=== PATIENT | female | born 1960 | race Caucasian/White ===

== ENCOUNTER 2024-06-05 13:21 | Emergency (ER) | payer OTHER, MEDICARE, SELFPAY ==
[2024-06-05] VITALS (13 sets, daily range): BP systolic 133–210; BP diastolic 69–114; PULSE 77–108; RESP 11–20; TEMP 36.9–37; O2SAT 95–99; BMI 26.6
--- NOTE | ~2024-06-05 | CT_ITS ---
EXAMINATION: CT HEAD WITHOUT CONTRAST CLINICAL INFORMATION: Headache. Hypertensive. COMPARISON: None available. TECHNIQUE: Contiguous axial imaging was performed from the skull base to vertex without intravenous administration of contrast. This CT examination was performed using dose optimization techniques as appropriate, variously including the following: *Automated exposure control *Adjustment of mA and/or kV according to patient size (this includes techniques or standardized protocols for targeted exams where dose is matched to indication/reason for exam; i.e. extremities or head) *Use of iterative reconstruction technique DLP: 613 mGy-cm FINDINGS: No acute intracranial hemorrhage. No mass effect or midline shift. No parenchymal lesion. The carlson-white differentiation is maintained. No extra-axial fluid collection. The ventricles and sulci are unremarkable. The basal cisterns are patent. The calvarium is intact. The visualized paranasal sinuses and mastoid air cells are clear. CT/CT head/brain wo IV con IMPRESSION: No acute intracranial hemorrhage or mass effect. Electronically signed by: Jc Sam MD 06/05/2024 05:03 PM [facility]
--- NOTE | 2024-06-05 14:06 | ED.HA ---
HPI - Headache General Chief Complaint: Headache Stated Complaint: headache-high bp Time Seen by Provider: 06/05/24 15:29 Source: patient Limitations: no limitations History of Present Illness ED Provider: Gabrielle Arreguin PA-C HPI Narrative: 64-year-old female presents with a headache x7 days. Patient describes a generalized headache, that has been ongoing for the past week. Her pain responds briefly to [id number] Tylenol, but then returns. Denies visual changes, phonophobia, photophobia, dizziness, nausea or vomiting. Patient has also noted that her blood pressure has been elevated, she does not have a history of hypertension. Denies chest pain or shortness of breath. Related Data Previous Rx's ?Medication ?Instructions ?Recorded amlodipine 5 mg tablet 5 mg PO DAILY #14 tabs 06/05/24 Allergies Allergy/AdvReac Type Severity Reaction Status Date / Time COVID-19 (SARS-CoV-2) Allergy Hives Verified 06/05/24 21:44 vaccine, jonathan Review of Systems Review of Systems: Yes all other systems are reviewed and are negative Constitutional: Constitutional: Denies fatigue and Denies fever(s) Eyes: Eyes: Denies change in vision Cardiovascular: Cardiovascular: Denies chest pain and Denies rapid heart rate Endocrine: Endocrine: Denies fatigue PMFSH Past Medical History Attestation statement: The following information was validated with the patient. Medical History (Updated 06/07/24 @ 00:02 by Kareem Li) Hypothyroid Hypertension Social History Social History Smoked in Last 30 Days: No Use of substances other than those prescribed or required for medical reasons: No Advance Directives: No Advance Directives Information Provided: Yes Do you have a plan to hurt others: No Plan Physical Exam Vital Signs: Vital Signs: Last Vital Signs Temp 98.4 F 06/05/24 19:04 Pulse 77 06/05/24 19:04 Resp 12 06/05/24 19:04 BP 133/69 06/05/24 19:04 Pulse Ox 95 06/05/24 19:04 O2 Del Method Room Air 06/05/24 19:04 BMI result Body Mass Index 26.6 Const: Other: Alert, well in appearance Orientation/consciousness: patient oriented x3 Resp: Other: Nonlabored respiration Cardio: Other: Normal peripheral perfusion Skin: Other: Warm dry no rash Neuro: General: patient oriented x3, gait normal, no focal motor deficits and CN's II-XI intact bilaterally Psych: Other: Calm cooperative Course Course Course Narrative: This is a Rapid Medical Exam performed in triage by Elly Melendez PA-C. Full HPI, ROS and PE to be performed by primary ED provider. 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 Tylenol provides mild relief. denies N/V, CP, SOB, visual changes. Does not take BP meds. PE: HTNsive 210/114, ambulating w/steady gait, nonfocal Plan: viral testing, labs Reevaluation(s) Reevaluation #1: improving after first dose Reevaluation #2: further improved Reevaluation #3: further improver 140s SBP, will send with amlodipine and f/u with PCP for new HTN Medications Administered Discontinued Medications Generic Name Dose Route Start Last Admin Trade Name Freq PRN Reason Stop Dose Admin Acetaminophen 975 mg 06/05/24 15:35 06/05/24 15:53 Acetaminophen 325 Mg Tablet PO 06/05/24 15:36 975 mg ONCE ONE Administration Ketorolac Tromethamine 15 mg 06/05/24 15:35 06/05/24 15:49 Ketorolac Tromethamine 15 Mg/Ml Vial IVPUSH 06/05/24 15:36 15 mg ONCE ONE Administration Labetalol HCl 10 mg 06/05/24 15:35 06/05/24 15:47 Labetalol Hcl 100 Mg/20 Ml Vial IVPUSH 06/05/24 15:36 10 mg ONCE ONE Administration Labetalol HCl 10 mg 06/05/24 16:01 06/05/24 16:12 Labetalol Hcl 100 Mg/20 Ml Vial IVPUSH 06/05/24 16:02 10 mg ONCE ONE Administration Labetalol HCl 20 mg 06/05/24 16:27 06/05/24 16:25 Labetalol Hcl 100 Mg/20 Ml Vial IVPUSH 06/05/24 16:28 20 mg ONCE ONE Administration Lorazepam 1 mg 06/05/24 15:35 06/05/24 15:43 Lorazepam 2 Mg/Ml Vial IVPUSH 06/05/24 15:36 1 mg ONCE ONE Administration Medical Decision Making Medical Decision Making [facility] Narrative: 64-year-old female presents with a headache x7 days. Patient describes a generalized headache, that has been ongoing for the past week. Her pain responds briefly to [id number] Tylenol, but then returns. Denies visual changes, phonophobia, photophobia, dizziness, nausea or vomiting. Patient has also noted that her blood pressure has been elevated, she does not have a history of hypertension. Denies chest pain or shortness of breath. No known chronic issues History: Per patient I have considered the following differential diagnoses: Hypertensive urgency, hypertensive emergency, intracranial hemorrhage, migraine, VAD Plan: Given new onset hypertension, screening labs including a cardiac enzymes were obtained assessing for end-organ damage. A CT scan of the brain was obtained as well. I have low suspicion for intracranial hemorrhage given the patient has had symptoms for 7 days, she is neurologically intact is not altered. We will be giving medication for her headache and labetalol for the pressures. Thought about migraine, however she has no features of a migraine type headache. Thought about VAD, however there are no visual changes, there was no preceding heavy lifting injury, and again she is neurologically intact. Labs: No leukocytosis, not anemic, no electrolyte abnormality, creatinine not elevated, cardiac enzymes negative, viral panel negative EKG: Normal sinus rhythm, rate of 76, no ischemic changes no ectopy, QTC 499 CT brain: CT/CT head/brain wo IV con IMPRESSION: No acute intracranial hemorrhage or mass effect. Electronically signed by: Jc Sam MD 06/05/2024 05:03 PM [facility] Lab Data 06/05/24 14:56 06/05/24 14:56 Labs: Lab Results 06/05/24 06/05/24 Range/Units 14:55 14:56 WBC 10.5 (4.8-10.8) X10*3/uL RBC 5.06 (4.20-5.50) X10*6/uL Hgb 14.7 (12.0-16.0) g/dl Hct 42.9 (37.0-47.0) % MCV 84.8 (80.0-98.0) fL MCH 29.1 (27.0-33.0) pg MCHC 34.3 (31.0-35.0) g/dl RDW 13.1 (11.0-16.0) % Plt Count 329 (160-400) X10*3/uL MPV 9.1 L (9.4-12.3) fL Immature Gran % (Auto) 0.4 (0.0-0.4) % Neut % (Auto) 71.2 (45-73) % Lymph % (Auto) 18.2 L (20-40) % [place] % (Auto) 8.4 (2-11) % Eos % (Auto) 1.4 (0-4) % Baso % (Auto) 0.4 (0-2) % Lymph # (Auto) 1.9 (1.2-4.9) X10*3/uL [place] # (Auto) 0.9 (0.1-1.2) X10*3/uL Eos # (Auto) 0.2 (0.0-0.4) X10*3/uL Baso # (Auto) 0.0 (0.0-0.2) X10*3/uL Abs Immat Gran (auto) 0.04 H (0.00-0.03) X10*3/uL Absolute Neuts (auto) 7.5 (2.0-8.3) x10*3/uL Absolute Nucleated RBC 0.000 (0.0-0.012) X10*3/uL Nucleated RBC % (auto) 0.0 (0.0-0.2) /100WBC Sodium 138 (135-145) mmol/L Potassium 4.1 (3.3-5.1) mmol/L Chloride 95 L (96-108) mmol/L Carbon Dioxide 35 H (22-29) mmol/L Anion Gap 12 (12-20) BUN 18 H (9-16) mg/dL Creatinine 0.83 (0.5-1.4) mg/dL Estim Creat Clear Calc 69.2 Estimated GFR > 60 Random Glucose 103 (60-115) mg/dL Calcium 10.1 (8.4-10.2) mg/dL Magnesium 2.3 (1.6-2.6) mg/dL Total Bilirubin 0.4 (0.0-1.0) mg/dL Direct Bilirubin 0.2 (0.0-0.5) mg/dL AST 56 H (5-31) U/L ALT 35 H (0-31) U/L Alkaline Phosphatase 64 (39-117) U/L Troponin I High Sens < 2.7 (<3.5-17.0) ng/L Total Protein 8.3 H (6.5-8.0) g/dL Albumin 4.7 (3.5-5.0) g/dL Influenza Type A (PCR) NEGATIVE (Negative) Influenza Type B (PCR) NEGATIVE (Negative) RSV RNA Qual (PCR) NEGATIVE (Negative) SARS-CoV-2 RNA (RT-PCR) NEGATIVE (Negative) Discharge Plan Discharge Clinical Impression: Hypertension, Headache Patient Disposition: Home, Self-Care Instructions: Heart Healthy Diet (ED), Low-Sodium Diet (ED), Hypertension in the Older Adult (ED) Additional Instructions: You were treated for elevated blood pressure and a headache. The CT scan of your brain was normal. Your blood pressure responded to IV medication called labetalol. We are starting you on a hypertensive agent called the amlodipine. You need to call your primary care provider tomorrow to schedule a follow up appointment, you need further management for your new onset hypertension. I have provided you with information to read, including appropriate lifestyle and dietary modifications. Prescriptions: New amlodipine 5 mg tablet 5 mg PO DAILY Qty: 14 0RF Interventions: ED Discharge Assessment Last Done: 06/05/24 19:04 Discharge Date/Time: 06/05/24 19:06 Print Language: Kinyarwanda
--- NOTE | 2024-06-05 14:10 | ECG_ITS ---
Test Reason : NUEROLOGICAL Blood Pressure : / mmHG Vent. Rate : 076 BPM Atrial Rate : 076 BPM P-R Int : 154 ms QRS Dur : 082 ms QT Int : 410 ms P-R-T Axes : -06 011 027 degrees QTc Int : 461 ms Normal sinus rhythm Normal ECG No previous ECGs available Referred By: Elly Melendez Electronically Signed By:Leif Montano
--- NOTE | 2024-06-05 14:28 | PC.NURSE ---
strong steady gait to 6H. no neuro deficits noted.
[2024-06-05 15:00] LABS: MANUAL DIFF FLAG NO
[2024-06-05 15:02] LABS: Basophils Percent Auto 0.4 % (0-2); Eosinophils Absolute Auto 0.2 X10*3/uL (0.0-0.4); Eosinophils Percent Auto 1.4 % (0-4); Hematocrit 42.9 % (37.0-47.0); Hemoglobin 14.7 g/dl (12.0-16.0); Imm Gran Abs Auto 0.04 X10*3/uL (0.00-0.03); Imm Gran Pct Auto 0.4 % (0.0-0.4); Lymphocytes Absolute Auto 1.9 X10*3/uL (1.2-4.9); Lymphocytes Percent Auto 18.2 % (20-40); Mean Corpuscular HGB Conc 34.3 g/dl (31.0-35.0); Mean Corpuscular Hemoglobin 29.1 pg (27.0-33.0); Mean Corpuscular Volume 84.8 fL (80.0-98.0); Mean Platelet Volume 9.1 fL (9.4-12.3); Monocytes Absolute Auto 0.9 X10*3/uL (0.1-1.2); Monocytes Percent Auto 8.4 % (2-11); Neutrophils Absolute Auto 7.5 x10*3/uL (2.0-8.3); Neutrophils Percent Auto 71.2 % (45-73); Platelet Count 329 X10*3/uL (160-400); Red Blood Count 5.06 X10*6/uL (4.20-5.50); Red Cell Distribution Width 13.1 % (11.0-16.0); White Blood Count 10.5 X10*3/uL (4.8-10.8)
--- NOTE | 2024-06-05 15:02 | PC.NURSE ---
Pt presents to ED from home, reports headache and high blood pressures X1 week. Headache 8/10, throbbing. Denies any SOB, CP, fevers, N/V/D, recent trauma or illnesses. Neuros intact. Alert and oriented, breathing even and unlabored, skin warm and dry. 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 BP significantly hypertensive.
[2024-06-05 15:28] LABS: Troponin-I High Sensitivity < 2.7 ng/L (<3.5-17.0)
[2024-06-05 15:38] LABS: Influenza A PCR NEGATIVE (Negative); Influenza B PCR NEGATIVE (Negative); Resp Syncy Virus RNA Qual PCR NEGATIVE (Negative); SARS COV2 PCR INHOUSE NEGATIVE (Negative)
[2024-06-05] MEDS: LORazepam 2 MG/ML VIAL 1 MG IVPUSH (15:43)
[2024-06-05 15:44] LABS: Alanine Aminotransferase 35 U/L (0-31); Albumin Level 4.7 g/dL (3.5-5.0); Alkaline Phosphatase 64 U/L (39-117); Anion Gap 12 (12-20); Aspartate Amino Transferase 56 U/L (5-31); Bilirubin Direct 0.2 mg/dL (0.0-0.5); Bilirubin Total 0.4 mg/dL (0.0-1.0); Blood Urea Nitrogen 18 mg/dL (9-16); Calcium 10.1 mg/dL (8.4-10.2); Carbon Dioxide 35 mmol/L (22-29); Chloride 95 mmol/L (96-108); Creatinine Clr Calc Pharmacy 69.2; Estimated Glomerular Filt Rate > 60; Glucose Random 103 mg/dL (60-115); Magnesium 2.3 mg/dL (1.6-2.6); Potassium 4.1 mmol/L (3.3-5.1); Sodium 138 mmol/L (135-145); Total Protein 8.3 g/dL (6.5-8.0)
[2024-06-05] MEDS: Labetalol HCL 100 MG/20 ML VIAL 10 MG IVPUSH ×2 (15:47→16:12)
[2024-06-05] MEDS: Ketorolac Tromethamine 15 MG/ML VIAL IVPUSH (15:49)
[2024-06-05] MEDS: Acetaminophen 325 MG TABLET 975 MG PO (15:53)
--- NOTE | 2024-06-05 16:04 | PC.NURSE ---
verbal order from PA to give 10mg labetalol BP 175/90. Patient reports improvement in headache
[2024-06-05] MEDS: Labetalol HCL 100 MG/20 ML VIAL 20 MG IVPUSH (16:25)
--- NOTE | 2024-06-05 16:30 | PC.NURSE ---
20mg IV push labetalol given at 4:24pm, per provider verbal order
== END 2024-06-05 19:06 | disposition home or self-care (01) ==
PROVIDERS: Physician Assistant; Emergency Provider Student in an Organized Health Care Education/Training Program; PCP Nurse Practitioner Adult Health
DX: R51.9 Headache, unspecified (principal); I10 Essential (primary) hypertension; Z79.899 Other long term (current) drug therapy; Z03.818 Encounter for observation for suspected exposure to other biological agents ruled out
CPT/HCPCS: 0241U; 36415; 70450; 80048; 80076; 83735; 84484; 85025; 93005; 96374; 96375; 96376; 99284; 99285; J1885; J1920; J2060

== ENCOUNTER → 2024-06-05 14:10 | Outpatient (BNV) | payer MEDICARE, OTHER, SELFPAY | PROVIDERS: Emergency Provider Student in an Organized Health Care Education/Training Program; PCP Nurse Practitioner Adult Health; Visit Provider Internal Medicine Cardiovascular Disease | DX: R42 Dizziness and giddiness (principal); R94.31 Abnormal electrocardiogram [ECG] [EKG] | CPT/HCPCS: 93010 ==

== ENCOUNTER 2024-06-05 21:34 | Emergency (ER) | payer OTHER, MEDICARE, SELFPAY ==
--- NOTE | 2024-06-05 | ECG_ITS ---
Test Reason : DIZZINES Blood Pressure : / mmHG Vent. Rate : 066 BPM Atrial Rate : 066 BPM P-R Int : 162 ms QRS Dur : 084 ms QT Int : 506 ms P-R-T Axes : 051 036 025 degrees QTc Int : 530 ms Normal sinus rhythm Prolonged QT Abnormal ECG When compared with ECG of 05-JUN-2024 16:48, No significant change was found Referred By: Generic ED Physician Electronically Signed By:Leif Montano
--- NOTE | ~2024-06-05 | CT_ITS ---
EXAMINATION: Unenhanced CT the head; IV contrast enhanced CT angiography of the head and neck; delayed IV contrast-enhanced CT the head CLINICAL INFORMATION: Severe headache. Syncope. COMPARISON: CT head 06/05/2024 TECHNIQUE: Routine unenhanced CT the head with multiple coronal and sagittal reformatted images; IV contrast enhanced CT angiography of the head and neck with multiple 3-D reformatted angiographic thick section MIPS images processed on the technologist workstation under concurrent supervision; delayed IV contrast-enhanced CT the head. Vascular stenoses are made with reference to the NASCET criteria less otherwise specified. This CT examination was performed using dose optimization techniques as appropriate, variously including the following: *Automated exposure control *Adjustment of mA and/or kV according to patient size (this includes techniques or standardized protocols for targeted exams where dose is matched to indication/reason for exam; i.e. extremities or head) *Use of iterative reconstruction technique Intravenous Contrast: Omnipaque 350 70 mL DLP: 2079 mGy-cm FINDINGS: Unenhanced and IV contrast and CT of the head: No intracranial hemorrhage, tumors or acute infarcts identified. The ventricles and sulci are normal in size and configuration. No focal parenchymal lesions of the brain or abnormal extra-axial fluid collections identified. The right ocular lens replacement is noted. No extracranial soft tissue inflammatory changes. No significant opacification of the visualized paranasal sinuses, mastoid air cells and middle ear cavities. No abnormal enhancement of the brain parenchyma. CT angiography neck: Scattered nonocclusive calcific plaques within the transverse aorta. The left carotid bulb demonstrates eccentric nonocclusive mixed calcific and noncalcific plaques. The right carotid bulb demonstrates nonocclusive eccentric nonulcerative noncalcific atherosclerotic plaque. The left vertebral artery is minimally dominant. No cervical segment vertebral artery stenoses or occlusions identified. CT angiography head: Minimal nonocclusive segmental calcific plaques within the cavernous portions of the internal carotid arteries. An anterior communicating artery is noted. No intrarenal stenoses or occlusions visualized. Visualized lung apices are clear. No cervical lymphadenopathy identified. Normal appearance of the parotid and submandibular glands. Multifocal dental amalgam. No suspicious skeletal lesions identified. Intervertebral disc space narrowing and endplate osteophytosis C4-C5, C5-C6 and C6-C7. CT/CT angio head neck IMPRESSION: Unenhanced and IV contrast enhanced CT of the head: *No acute intracranial abnormalities. *Minimal calcific atherosclerosis of the cavernous portions of internal carotid artery; otherwise, normal unenhanced CT of the head. CT angiography head: *Minimal nonocclusive calcific atherosclerosis of the cavernous portions of the internal carotid arteries. *No intracranial large vessel occlusions. CT angiography neck: *Nonocclusive bilateral carotid bulb not ulcerative atherosclerotic plaques. *Multiple level chronic spondylosis of the cervical spine. Electronically signed by: Brendan Bernard MD 06/06/2024 03:06 AM [facility]
[2024-06-05 21:38] VITALS: BP 100/70; PULSE 66; O2SAT 99
[2024-06-05 21:43] VITALS: BP 129/58; PULSE 67; RESP 16; TEMP 36.7; O2SAT 97; BMI 28.1
[2024-06-05 21:48] VITALS: BP 129/58; PULSE 64; PULSE 67; RESP 16; TEMP 36.7; O2SAT 97
[2024-06-05 21:50] VITALS: O2SAT 97
[2024-06-05] MEDS: Magnesium Sulfate/H2O 2 GM/50 ML PIGGYBACK IV (22:09)
--- NOTE | 2024-06-05 23:28 | MHC.EDTECH ---
late entry: this tech assumed care of pt at 2300, when rounding the on pt, she was witnessed resting quietly in stretcher, inquired if she was in need of anything in which she stated that she did not. Call light within reach and reassured pt to use call light if needs arise.
--- NOTE | 2024-06-05 23:47 | MHC.EDTECH ---
late entry: this tech assumed care of pt at 2300, when runding the pt was witnessed resting quietly in stretcher, at bedside. Inquired if the pt or visitor was in need of anything in which they stated that they did not. Encouraged pt to use call light if needs arise.
[2024-06-05] MEDS: Lactated Ringers 1,000 ML 999 ML IV (23:51)
--- NOTE | 2024-06-05 23:52 | ED_ITS ---
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 She went to get up from the table after feeling weak and had near syncopal event - caught her she did not fully lose consciousness. No injuries. She feels fine now but EMS initial pressures 80s. She came in for first visit of severe frontal headache - no trauma occurred at rest no precipiting events took 3 hours for max intensity has never had anything like this before - no fevers. Headache is much better now. She did not her BP was high all week. complaint: almost passed out Onset (ago): minute(s) ([employer]) Prodromal symptoms: lightheaded Witnessed: Yes - by Bystander Context: standing up Injuries sustained associated with event: none Current symptoms: back to baseline History: other (has never had anti-HTNive given 40mg labetalol in the ED) Treatments prior to arrival: IV fluids Related Data Previous Rx's ?Medication ?Instructions ?Recorded amlodipine 5 mg tablet 5 mg PO DAILY #14 tabs 06/05/24 Allergies Allergy/AdvReac Type Severity Reaction Status Date / Time COVID-19 (SARS-CoV-2) Allergy Hives Verified 06/05/24 21:44 vaccine, jonathan Review of Systems 2 Review of Systems: Constitutional : No Fever, No Chills, No Fatigue ENT/Mouth : No sore throat, No Rhinorrhea Eyes: No Eye Pain, No Swelling, No Redness Cardiovascular : No Chest Pain, No SOB, No Dyspnea on Exertion Respiratory : No Cough, No Sputum Gastrointestinal : No Nausea, No Vomiting, No Diarrhea, No abdominal Pain Genitourinary : No Dysuria, No Urinary Frequency, No Hematuria, Musculoskeletal : No joint pain, No Myalgias, No Joint Swelling Skin : No Skin Lesions, No rash Neuro : No Weakness, No Numbness, No Dizziness, positive Headache, pos syncope Psych : No Anxiety/Panic, No Depression Heme/Lymph: No Bruising, No Bleeding,No Lymphadenopathy Endocrine : No Polyuria, No Polydipsia All other systems reviewed and are negative [facility] Past Medical History Attestation statement: The following information was validated with the patient. Source: old records reviewed Medical History (Updated 06/06/24 @ 00:57 by Clotilde Medina DO) Hypothyroid Hypertension Social History Social History Smoked in Last 30 Days: No Use of substances other than those prescribed or required for medical reasons: No Advance Directives: No Advance Directives Information Provided: Yes Do you have a plan to hurt others: No Plan Physical Exam 2 Vital Signs: Vital Signs: Last Vital Signs Temp 97.7 F 06/06/24 00:17 Pulse 73 06/06/24 00:13 Resp 14 06/06/24 00:17 BP 135/64 06/06/24 00:13 Pulse Ox 98 06/06/24 00:17 O2 Del Method Room Air 06/06/24 00:17 BMI result Body Mass Index 28.1 Appearance: Alert. Oriented X3. No acute distress. Eyes: Pupils equal, round and reactive to light. ENT: Pharynx normal. Neck: Normal inspection. Neck supple. CVS: Normal heart rate and rhythm. Pulses normal. Respiratory: No respiratory distress. Breath sounds normal. Abdomen: Soft and nontender. Skin: Skin warm and dry. Normal skin color. Normal skin turgor. Extremities: No lower extremity edema. No calf ttp Neuro: Oriented X 3. No motor deficit. No sensory deficit. Course Course Course Narrative: signed out to Dr. Holly Medications Administered Generic Name Dose Route Start Last Admin Trade Name Freq PRN Reason Stop Dose Admin Potassium Chloride 10 meq in 100 mls @ 100 mls/hr 06/06/24 01:00 06/06/24 01:52 Potassium Chloride/H20 IV 06/06/24 04:59 100 mls/hr Q1H [place] Administration Discontinued Medications Generic Name Dose Route Start Last Admin Trade Name Freq PRN Reason Stop Dose Admin Magnesium Sulfate 2 gm in 50 mls @ 25 mls/hr 06/05/24 21:48 06/05/24 23:50 Magnesium Sulfate/H2o IV 06/05/24 23:47 Infused ONCE ONE Infusion Lactated Ringer's 1,000 mls @ 999 mls/hr 06/05/24 23:40 06/05/24 23:51 Lr IV 06/06/24 00:40 999 mls/hr .Q1H1M ONE Administration Iohexol 70 ml 06/06/24 01:19 06/06/24 01:20 Iohexol 350 Mg/Ml 100 Ml Infus..Btl IV 06/06/24 01:20 70 ml ONCE ONE Administration Potassium Chloride 40 meq 06/06/24 00:50 06/06/24 01:52 Potassium Chloride Er 20 Meq Tab.Er.Prt PO 06/06/24 00:51 40 meq ONCE ONE Administration Medical Decision Making Medical Decision Making MDM Narrative: 64 yo female with PMH of headaches, HTN, hypothyroidism 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 suspect medication induced orthostatics - at this time basic labs, CTA of head and neck given history for aneurysm, IVF, qtc 530 recheck VS, ortho negative Differential Diagnosis Differential Diagnoses: The differential diagnosis associated with the presentation includes lyte abnormality, reaction to new BP medications, orthostatic Admission/Observation Consideration of admission/observation: Escalation of care including admission/observation considered Lab Data [facility] Lab Attestation statement: I reviewed the patient's lab results. 06/06/24 00:04 06/06/24 00:04 Labs: Lab Results 06/06/24 Range/Units 00:04 WBC 11.8 H (4.8-10.8) X10*3/uL RBC 4.18 L (4.20-5.50) X10*6/uL Hgb 12.2 (12.0-16.0) g/dl Hct 35.9 L (37.0-47.0) % MCV 85.9 (80.0-98.0) fL MCH 29.2 (27.0-33.0) pg MCHC 34.0 (31.0-35.0) g/dl RDW 13.2 (11.0-16.0) % Plt Count 277 (160-400) X10*3/uL MPV 8.5 L (9.4-12.3) fL Immature Gran % (Auto) 0.3 (0.0-0.4) % Neut % (Auto) 67.0 (45-73) % Lymph % (Auto) 20.1 (20-40) % [place] % (Auto) 9.9 (2-11) % Eos % (Auto) 2.3 (0-4) % Baso % (Auto) 0.4 (0-2) % Lymph # (Auto) 2.4 (1.2-4.9) X10*3/uL [place] # (Auto) 1.2 (0.1-1.2) X10*3/uL Eos # (Auto) 0.3 (0.0-0.4) X10*3/uL Baso # (Auto) 0.1 (0.0-0.2) X10*3/uL Abs Immat Gran (auto) 0.04 H (0.00-0.03) X10*3/uL Absolute Neuts (auto) 7.9 (2.0-8.3) x10*3/uL Absolute Nucleated RBC 0.000 (0.0-0.012) X10*3/uL Nucleated RBC % (auto) 0.0 (0.0-0.2) /100WBC ESR 12 (0-20) MM/HR PT 11.1 (10.9-12.4) SEC INR 1.0 (0.9-1.1) Sodium 139 (135-145) mmol/L Potassium 2.7 L* D (3.3-5.1) mmol/L Chloride 99 (96-108) mmol/L Carbon Dioxide 31 H (22-29) mmol/L Anion Gap 12 (12-20) BUN 21 H (9-16) mg/dL Creatinine 0.99 (0.5-1.4) mg/dL Estim Creat Clear Calc 59.5 Estimated GFR 57 Random Glucose 123 H (60-115) mg/dL Calcium 8.9 D (8.4-10.2) mg/dL Magnesium 3.2 H (1.6-2.6) mg/dL Total Bilirubin 0.3 (0.0-1.0) mg/dL Direct Bilirubin 0.1 (0.0-0.5) mg/dL AST 23 (5-31) U/L ALT 20 (0-31) U/L Alkaline Phosphatase 55 (39-117) U/L Total Creatine Kinase 45 (26-140) U/L Troponin I High Sens 4.6 D (<3.5-17.0) ng/L Total Protein 6.0 L (6.5-8.0) g/dL Albumin 3.7 (3.5-5.0) g/dL Lipase 25 (8-78) U/L Hold Red Top See Note Independent Interpretation I performed an independent interpretation of an: EKG Interpretation: Rate: 66 Rhythm: NSR Vass: normal Normal P waves. Normal JIHAN. Normal QRS complex. ST T wave : no JOSE, inverted t waves V1 qTC: 530 prior studies: qtc longer The study has been interpreted contemporaneously by me. . Independent Historian Clinical information obtained from an independent historian. History obtained from or confirmed by: Spouse and EMS External Record Review External record reviewed: Outpatient record Discharge Plan Discharge Clinical Impression: Near syncope, Acute hypokalemia Prescriptions: No Action amlodipine 5 mg tablet 5 mg PO DAILY Qty: 14 0RF Print Language: Lao
--- NOTE | 2024-06-05 23:55 | PC.NURSE ---
Took over care from DARCI Ruiz, malinda per sep, labs collected and sent, pt resting comfortable
[2024-06-06] VITALS (7 sets, daily range): BP systolic 130–142; BP diastolic 61–75; PULSE 70–77; RESP 14–20; TEMP 36.3–37.1; O2SAT 96–98
[2024-06-06 00:12] LABS: Basophils Absolute Auto 0.1 X10*3/uL (0.0-0.2); Basophils Percent Auto 0.4 % (0-2); Eosinophils Absolute Auto 0.3 X10*3/uL (0.0-0.4); Eosinophils Percent Auto 2.3 % (0-4); Hematocrit 35.9 % (37.0-47.0); Hemoglobin 12.2 g/dl (12.0-16.0); Imm Gran Abs Auto 0.04 X10*3/uL (0.00-0.03); Imm Gran Pct Auto 0.3 % (0.0-0.4); Lymphocytes Absolute Auto 2.4 X10*3/uL (1.2-4.9); Lymphocytes Percent Auto 20.1 % (20-40); MANUAL DIFF FLAG NO; Mean Corpuscular Hemoglobin 29.2 pg (27.0-33.0); Mean Corpuscular Volume 85.9 fL (80.0-98.0); Mean Platelet Volume 8.5 fL (9.4-12.3); Monocytes Absolute Auto 1.2 X10*3/uL (0.1-1.2); Monocytes Percent Auto 9.9 % (2-11); Neutrophils Absolute Auto 7.9 x10*3/uL (2.0-8.3); Platelet Count 277 X10*3/uL (160-400); Red Blood Count 4.18 X10*6/uL (4.20-5.50); Red Cell Distribution Width 13.2 % (11.0-16.0); White Blood Count 11.8 X10*3/uL (4.8-10.8)
--- NOTE | 2024-06-06 00:19 | MHC.EDTECH ---
at this time this tech performed orthostatic vital signs on the pt from laying, to sitting, to standing. pt reported no signs of dizziness and lightheadedness. Vital signs appeared to be stable and consistent between positions, and pt tolerated procedure well, no pain or other symptoms reported.
[2024-06-06 00:28] LABS: Prothrombin Time 11.1 SEC (10.9-12.4)
[2024-06-06 00:43] LABS: Erythrocyte Sedimentation Rate 12 MM/HR (0-20)
[2024-06-06 00:48] LABS: Alanine Aminotransferase 20 U/L (0-31); Albumin Level 3.7 g/dL (3.5-5.0); Alkaline Phosphatase 55 U/L (39-117); Anion Gap 12 (12-20); Aspartate Amino Transferase 23 U/L (5-31); Bilirubin Direct 0.1 mg/dL (0.0-0.5); Bilirubin Total 0.3 mg/dL (0.0-1.0); Blood Urea Nitrogen 21 mg/dL (9-16); Calcium 8.9 mg/dL (8.4-10.2); Carbon Dioxide 31 mmol/L (22-29); Chloride 99 mmol/L (96-108); Creatinine Clr Calc Pharmacy 59.5; Estimated Glomerular Filt Rate 57; Glucose Random 123 mg/dL (60-115); Lipase 25 U/L (8-78); Magnesium 3.2 mg/dL (1.6-2.6); Potassium 2.7 mmol/L (3.3-5.1); Sodium 139 mmol/L (135-145)
[2024-06-06 00:53] LABS: Troponin-I High Sensitivity 4.6 ng/L (<3.5-17.0)
[2024-06-06] MEDS: iohexoL 350 MG/ML 100 ML INFUS..BTL 70 ML IV (01:20)
[2024-06-06] MEDS: Potassium Chloride ER 20 MEQ TAB.ER.PRT 40 MEQ PO (01:52)
[2024-06-06] MEDS: Potassium Chloride/H20 10 MEQ/100 ML PIGGYBACK 100 MEQ IV (01:52)
--- NOTE | 2024-06-06 02:04 | PC.NURSE ---
medicated per mar.
[2024-06-06 02:17] LABS: Appearance Urine Clear; Color Urine Yellow; Glucose Urine UA Negative (Negative); Leukocyte Esterase Urine Small (1+) (Negative); Nitrite Urine Negative (Negative); PH 6.5 (5.0-9.0); Specific Gravity - Urine >= 1.030 (1.005-1.025); UMIC TRIGGER UACC YES; Urine Blood Negative (Negative); Urine Ketones Negative (Negative); Urine Protein Negative (Neg-Trace)
[2024-06-06 02:19] LABS: Bacteria Urine None Seen (None Seen); RBC Urine 0-2 /HPF (0-2); Squamous Epithelial Cell Urine 0-2 /HPF (0-2); UACC Culture Trigger YES
[2024-06-06] MEDS: Potassium Chloride Packet 20 MEQ PACKET 40 MEQ PO (03:33)
--- NOTE | 2024-06-06 03:50 | PC.NURSE ---
pt oob to bathroom with a steady gait.
--- NOTE | 2024-06-06 04:58 | PC.NURSE ---
reviewed discharge instruction with pt. pt verbalized understanding, no sign of distress, no sob or chest pain. pt had a steady gait upon discharge.
== END 2024-06-06 05:06 | disposition home or self-care (01) ==
PROVIDERS: Emergency Medicine; Emergency Provider Emergency Medicine Emergency Medical Services; PCP Nurse Practitioner Adult Health
DX: R55 Syncope and collapse (principal); E87.6 Hypokalemia; R42 Dizziness and giddiness; R94.31 Abnormal electrocardiogram [ECG] [EKG]; I10 Essential (primary) hypertension; R51.9 Headache, unspecified; Z79.899 Other long term (current) drug therapy
CPT/HCPCS: 36415; 70496; 70498; 80048; 80076; 81001; 82550; 83690; 83735; 84484; 85025; 85610; 85652; 87086; 93005; 96361; 96365; 96375; 99285; J3475; J3480; J7120; Q9967